=== PATIENT | male | born 1960 | race Caucasian/White ===

== ENCOUNTER 2018-12-21 08:43 | Day surgery (SDC) | payer MEDICARE ==
[~2018-12-21] VITALS: Ht 177.8 cm; Wt 57.3 kg
[~2018-12-21 08:43] MED LIST: BACTRIM DS TABL1 TAB PO; GLIMEPIRIDE1 MG PO; GLUCOPHAGE500 MG PO; RIFADIN300 MG PO
[2018-12-21 09:03] LABS: HEMATOCRIT 39.9 % (42.0-54.0); HEMOGLOBIN 14.1 g/dL (13.5-17.5); MCH 31.8 pg (26.0-34.0); MCHC 35.3 g/dL (31.0-37.0); MCV 90.1 fL (80.0-100.0); MEAN PLATELET VOLUME 9.2 fL (7.4-10.4); RBC 4.43 10x6/uL (4.20-6.10); RDW 13.9 % (11.5-14.5); WBC 10.5 10x3/uL (4.8-10.8)
[2018-12-21 09:17] LABS: ANION GAP 9.3 mmol/L (8-16); CALCIUM 9.8 mg/dL (8.5-10.1); CARBON DIOXIDE 33.2 mmol/L (21.0-32.0); CREATININE - SERUM 1.1 mg/dL (0.6-1.3); POTASSIUM - SERUM 4.5 mmol/L (3.5-5.1)
[2018-12-21] MEDS ORDERED: ZOFRAN4 MG PO (09:17)
[2018-12-21] MEDS ORDERED: OMEPRAZOLE20 M1 PO (09:18)
[2018-12-21] MEDS ORDERED: CARAFATE1 G PO (09:18)
[2018-12-21] MEDS ORDERED: BACLOFEN10 MG PO (09:19)
[2018-12-21 09:28] VITALS: BP 131/64; Ht 177.8 cm; Wt 57.3 kg
--- NOTE | 2018-12-21 11:03 | NUR ---
DC INSTRUCTIONS GIVEN TO PT/FAMILY FRIEND. STATE UNDERSTANDING. DC'D IV CATH FULLY INTACT.
--- NOTE | 2018-12-21 11:12 | NUR ---
PT LEFT UNIT VIA WC AT 1107
--- NOTE | 2018-12-23 18:24 | OP ---
PATIENT NAME: BRANDIE MERRITT MEDICAL RECORD: [id number] [facility] DATE: SURGEON: SANTA GAMBLE DO DATE OF OPERATION: 12/21/2018 PROCEDURE: EGD with biopsies. INDICATIONS FOR PROCEDURE: Heartburn, left upper quadrant abdominal pain, nausea and vomiting, abnormal weight loss, history of chronic pancreatitis. SCOPE: Olympus video gastroscope. MEDICATIONS: Propofol 100 mg IV per anesthesia. ESTIMATED BLOOD LOSS: Minimal. COMPLICATIONS: None. FINDINGS: Informed consent was given. The patient was made comfortable with the above medication. After reaching an adequate level of sedation by slow IV push, the patient was placed on his left side. The endoscope was advanced under direct visualization through the mouth to the third portion of the duodenum. The entire esophagus and GE junction appeared normal. The endoscope was advanced into the stomach and retroflexed to view the cardia and fundus, which appeared normal. Throughout the entire body, antrum, and prepyloric region, there was erythema and granularity consistent with possible gastritis. Random cold forceps biopsies were taken to submit for histopathology and to rule out the presence of H. pylori. The endoscope was advanced beyond the pylorus into the duodenum, which appeared normal down to the third portion. The endoscope was withdrawn from the patient. The patient tolerated the procedure well and there were no complications. IMPRESSION: 1. Possible gastritis, characterized by erythema and granularity of the stomach. Biopsies pending. 2. Otherwise, unremarkable esophagogastroduodenoscopy. PLAN AND RECOMMENDATIONS: 1. Discharge home when recovery parameters are met. 2. Follow up biopsy specimen results and treat for H. pylori if indicated. 3. GERD diet and reflux precautions. 4. Discontinue omeprazole as it can cause pancreatitis itself. 5. Change antacid therapy to Protonix 40 mg daily times 60 days. Okay to reduce to 20 mg daily thereafter. 6. Recommend discontinuation of smoking as it can promote pancreatitis and pancreatic cancer. 7. Regarding the abdominal pain, recommend the patient start supplementing diet with fiber 1 tablespoon daily and possibly MiraLax to help have more regular bowel movements. 8. May need chronic pain management from a pancreatitis standpoint. 9. If pain management was not adequate for the patient's chronic pancreatitis pain, a celiac plexus block could be considered, but this would not be first line treatment. TRANSINT:[id number] Voice Confirmation ID: [id number] DOCUMENT ID: [id number] OPERATIVE REPORT [id number] BRANDIE MERRITT NATHAN A DO at 1824 CC: [id number] DICTATION DATE: 12/21/18 1027 [employer] OPERATOR: 12/21/18 1110 [facility] 12/21/18 [place] [id number] [place] [id number]
== END 2018-12-21 11:07 | disposition home or self-care (01) ==
LOC: D.OPS 08:43
PROVIDERS: Anesthesiology; ATTEND Internal Medicine Gastroenterology
DX: R12 Heartburn (principal); R11.2 Nausea with vomiting, unspecified; R63.4 Abnormal weight loss; R10.11 Right upper quadrant pain

== ENCOUNTER → 2019-02-05 08:05 | Outpatient (CLI) | payer MEDICARE ==
[2018-12-21 09:28] VITALS: BMI 18.1
[~2019-02-05 08:05] MED LIST changes: +BACLOFEN10 MG PO; +CARAFATE1 G PO; +OMEPRAZOLE20 M1 PO; +ZOFRAN4 MG PO
== END | disposition home or self-care (01) ==
LOC: D.NM 08:05
PROVIDERS: ATTEND Internal Medicine Gastroenterology
DX: R10.12 Left upper quadrant pain (principal); K80.20 Calculus of gallbladder without cholecystitis without obstruction; R11.2 Nausea with vomiting, unspecified